=== PATIENT | male | born 1985 | race Caucasian/White ===

== ENCOUNTER 2021-11-22 20:27 | Emergency (ER) | payer MEDICAID ==
[2021-11-22 20:43] VITALS: BP 123/82
--- NOTE | 2021-11-22 21:18 | ED Physician Documentation ---
History of Present Illness - Stated complaint Stated Complaint: COUGH - Chief complaint Chief Complaint: General - History obtained from History obtained from: Patient - History of Present Illness Timing: Today Pain level max: 0 Pain level now: 0 - Additonal information Additional information: 36-year-old male, history of autism, on several medications for psychiatric care. He is unsure of all of his medications, but is here with his parents to discuss possible Paxlovid. Fully vaccinated. Mild symptoms, positive test today Review of Systems Constitutional: denies: Fever Cardiac: denies: Chest pain / pressure Respiratory: reports: Cough (Mild) GI: denies: Vomiting Skin: denies: Rash Musculoskeletal: denies: Neck pain, Back pain Neurologic: denies: Headache PD PAST MEDICAL HISTORY - Past Medical History Past Medical History: Yes Psych: Other (Autism) - Past Surgical History Past Surgical History: No - Allergies Allergies/Adverse Reactions: Allergies Allergy/AdvReac Type Severity Reaction Status Date / Time No Known Drug Allergies Allergy Verified 11/22/21 20:42 PD ED PE NORMAL - Vitals Vital signs reviewed: Yes - General General: Alert and oriented X 3, No acute distress - HEENT HEENT: PERRL, Moist mucous membranes - Neck Neck: Supple, no meningeal sign - Respiratory Respiratory: No respiratory distress - Derm Derm: Warm and dry - Neuro Neuro: Alert and oriented X 3 - Psych Psych: Normal mood, Normal affect Results - Vitals Vitals: Vital Signs - 24 hr 11/22/21 20:39 Temperature 36.3 C L Heart Rate 75 Respiratory 14 Rate Blood Pressure 123/82 H O2 Saturation 98 Oxygen O2 Source Room air PD MEDICAL DECISION MAKING - ED course Complexity details: considered differential, d/w patient, d/w family ED course: Patient is on several medications at home. The only ones that he knows are lithium, Depakote and Risperdal. The Paxlovid will interact with the Risperdal and Depakote. Could potentially result in toxicity, increased Effexor decrease effects. They do not want to risk his behavior changing at the Paxlovid. Therefore we will not prescribe this. He also does not know the other medica tions he takes at home. Patient is well-appearing, nontoxic. Afebrile. No hypoxia. No respiratory distress. Fully vaccinated against COVID. Patient and family counseled regarding signs and symptoms for which I believe and urgent re- evaluation would be necessary. Patient with good understanding of and agreement to plan and is comfortable going home at this time This document was made in part using voice recognition software. While efforts are made to proofread this document, sound alike and grammatical errors may occur. Departure - Departure Disposition: 01 Home, Self Care Clinical Impression: COVID Condition: Good Instructions: ED Viral Syndrome Follow-Up: your,doctor as needed [Other] Comments: As we discussed, the Paxlovid can interact with your Depakote and Risperdal. Given that you are fully vaccinated, it is reasonable not to take the Paxlovid. Drink plenty of fluids and rest. Return if you worsen. Isolation precautions for COVID Day 0 is your first day of symptoms or a positive viral test. Day 1 is the first full day after your symptoms developed or your test specimen was collected. If you have COVID-19 or have symptoms, isolate for at least 5 days. IF YOU: Tested positive for COVID-19 or have symptoms, regardless of vaccination status Stay home for at least 5 days Stay home for 5 days and isolate from others in your home. Wear a well-fitting mask if you must be around others in your home. Do not travel. Ending isolation if you had symptoms End isolation after 5 full days if you are fever-free for 24 hours (without the use of fever-reducing medication) and your symptoms are improving. Ending isolation if you did NOT have symptoms End isolation after at least 5 full days after your positive test. If you got very sick from COVID-19 or have a weakened immune system You should isolate for at least 10 days. Consult your doctor before ending isolation. Take precautions until day 10 Wear a well-fitting mask Wear a well-fitting mask for 10 full days any time you are around others inside your home or in public. Do not go to places where you are unable to wear a mask. Do not travel Do not travel until a full 10 days after your symptoms started or the date your positive test was taken if you had no symptoms. Avoid being around people who are more likely to get very sick from COVID-19. Discharge Date/Time: 11/22/21 21:43
== END 2021-11-22 21:43 | disposition home or self-care (01) ==
LOC: ED 20:27
DX: U07.1 COVID-19 (principal)
CPT/HCPCS: 99281; 99282